=== PATIENT | female | born 1975 | race Caucasian/White ===

== ENCOUNTER 2023-10-27 10:01 | Emergency (ER) | payer BC ==
[2023-10-27 10:24] VITALS: BP 137/86; PULSE 86; RESP 18; TEMP 98.5; BMI 20.9
[2023-10-27 11:10] LABS: MCH 31.5 pg (25.7-33.7); MCHC 33.4 g/dl (32.0-36.0); MEAN CELL VOLUME 94.4 fl (80-96); MEAN PLT VOLUME 8.6 fl (7.5-11.1); PLATELET COUNT 267.6 10^3/uL (134-434); RBC 4.13 10^6/uL (3.60-5.2); RDW 13.5 % (11.6-15.6); WHITE BLOOD COUNT 4.2 10^3/uL (4.0-10.8)
[2023-10-27 11:12] LABS: ALBUMIN 4.7 g/dl (3.4-5.0); ALK PHOS 51 U/L (45-117); ANION GAP 6 mmol/L (4-13); BILIRUBIN,TOTAL 0.5 mg/dl (0.2-1); CALCIUM 9.9 mg/dl (8.5-10.1); CHLORIDE 104 mmol/L (98-107); CO2 29 mmol/L (21-32); CREATININE 0.7 mg/dl (0.6-1.3); GLUCOSE,RANDOM 82 mg/dl (74-106); SGOT/AST 17 U/L (15-37); SGPT/ALT 10 U/L (7-52); SODIUM 139 mmol/L (136-145); TOT PROT 6.9 g/dl (6.4-8.2)
[2023-10-27 11:21] LABS: PLATELET ESTIMATE ADEQUATE
== END 2023-10-27 12:00 | disposition home or self-care (01) ==
LOC: FER 10:01
DX: R07.89 Other chest pain (principal); M94.0 Chondrocostal junction syndrome [Tietze]; Z20.822 Contact with and (suspected) exposure to COVID-19
CPT/HCPCS: 0241U-QW; 36415; 71046-TC-FY; 80053; 81003; 84484; 84703; 85027; 93005; 99285-25